=== PATIENT | female | born 1980 | race Caucasian/White ===

== ENCOUNTER → 2016-09-06 | Outpatient (REF) | payer MEDICAID ==
[2016-09-06 13:22] LABS: MEAN CORPUSCULAR HEMOGLOBIN 30.9 pg (27.0-33.0); MEAN CORPUSCULAR HGB CONC 33.6 g/dl (32.0-36.5); MEAN CORPUSCULAR VOLUME 91.9 fl (80.0-96.0); RED CELL DISTRIBUTION WIDTH 12.8 % (11.5-14.5); WHITE BLOOD COUNT 16.1 K/mm3 (4.0-10.0)
[2016-09-06 21:03] LABS: HCG, SERUM QUANTITATIVE 51449 MIU/ML
== END ==
LOC: M LAB REF 12:33
PROVIDERS: ATTEND Advanced Practice Midwife
DX: O36.80X0 Pregnancy with inconclusive fetal viability, not applicable or unspecified (principal); Z3A.00 Weeks of gestation of pregnancy not specified

== ENCOUNTER → 2016-11-27 | Outpatient (REF) | payer OTHER | LOC: M LAB REF 12:39 | PROVIDERS: ATTEND Advanced Practice Midwife | DX: R30.0 Dysuria (principal) ==

== ENCOUNTER → 2017-02-07 | Outpatient (CLI) | payer OTHER ==
[2017-02-07 12:15] LABS: MEAN CORPUSCULAR HEMOGLOBIN 30.9 pg (27.0-33.0); MEAN CORPUSCULAR HGB CONC 32.8 g/dl (32.0-36.5); MEAN CORPUSCULAR VOLUME 94.2 fl (80.0-96.0); PLATELET COUNT, AUTOMATED 415 10^3/uL (150-450); WHITE BLOOD COUNT 15.5 10^3/uL (4.0-10.0)
== END ==
LOC: M LAB 10:39
PROVIDERS: ATTEND Advanced Practice Midwife
DX: Z34.82 Encounter for supervision of other normal pregnancy, second trimester (principal); Z3A.23 23 weeks gestation of pregnancy

== ENCOUNTER → 2017-04-01 | Outpatient (REF) | payer OTHER | LOC: M LAB REF 14:01 | DX: Z34.83 Encounter for supervision of other normal pregnancy, third trimester (principal); Z3A.36 36 weeks gestation of pregnancy ==

== ENCOUNTER 2017-04-27 05:24 | Outpatient (CLI) | payer OTHER ==
[2017-04-27] MEDS: CEPHALEXIN 500 MG CAP PO (06:34)
[2017-04-27] MEDS: PHENAZOPYRIDINE 100 MG TAB PO (07:21)
== END 2017-04-27 08:40 | disposition home or self-care (01) ==
LOC: M LDO 05:24
DX: O99.89 Other specified diseases and conditions complicating pregnancy, childbirth and the puerperium (principal); Z3A.40 40 weeks gestation of pregnancy; O23.43 Unspecified infection of urinary tract in pregnancy, third trimester
CPT/HCPCS: 87086

== ENCOUNTER 2017-05-01 14:47 | Inpatient (IN) | payer OTHER ==
[2017-05-01] MEDS: LR 1,000 ML IV (15:33)
[2017-05-01 15:59] LABS: HEMATOCRIT 35.1 % (36.0-47.0); HEMOGLOBIN 11.4 g/dl (12.0-16.0); MEAN CORPUSCULAR HEMOGLOBIN 28.6 pg (27.0-33.0); MEAN CORPUSCULAR HGB CONC 32.5 g/dl (32.0-36.5); MEAN CORPUSCULAR VOLUME 88.2 fl (80.0-96.0); PLATELET COUNT, AUTOMATED 411 10^3/uL (150-450); RED BLOOD COUNT 3.98 10^6/uL (4.00-5.40); RED CELL DISTRIBUTION WIDTH 13.5 % (11.5-14.5)
[2017-05-01] MEDS ORDERED: FENTANYL 2MCG/ML ROPIVACAINE 0.2% IN 0.9% NACL 200ML IVBAG As Ordered (18:06)
[2017-05-01] MEDS ORDERED: OXYTOCIN DRIP 30 UNITS in APPROPRIATE DILUENT 1 EA IV (18:30)
[2017-05-01] MEDS ORDERED: NALOXONE INJ 0.4 MG/1 ML VIAL (J2310) IV (19:00)
[2017-05-01] MEDS ORDERED: EPIDURAL/PCA KEYS XX (19:00)
[2017-05-01] MEDS ORDERED: ePHEDrine INJ 50 MG/ML VIAL IV (19:00)
[2017-05-01] MEDS ORDERED: REFRIGERATOR IV KEYS XX (19:00)
[2017-05-01] MEDS ORDERED: diphenhydrAMINE INJ 50MG/ML VIAL (J1200) IV (19:00)
[2017-05-01] MEDS ORDERED: LACTATED RINGER'S 1000 ML IV (19:00)
[2017-05-01] MEDS: FENTANYL/ROPIVACAINE/NACL BAG 200 ML EPIDURAL (19:00)
[2017-05-01] MEDS ORDERED: EPIDURAL COMMENT XX (19:00)
[2017-05-01] MEDS: ONDANSETRON 4MG/2ML VIAL (J2405) IV (21:12)
[2017-05-01] MEDS: LACTATED RINGER'S 1000 ML IV (21:13)
[2017-05-01] MEDS ORDERED: BICITRA 30ML SOLN UDC As Ordered (23:07)
[2017-05-02 03:51] LABS: CORD GAS ABE V -11.2; CORD GAS HCO3 V 18.2 MEQ/L; CORD GAS PCO2 V 53.9 mmHg; CORD GAS PH V 7.146 UNITS; CORD GAS PO2 V 22.1 mmHg; CORD GAS SBC V 14.7 MEQ/L; CORD GAS TCO2 V 19.8 MEQ/L
[2017-05-02 03:52] LABS: CORD GAS ABE A -11.3; CORD GAS HCO3 A 19.4 MEQ/L; CORD GAS O2 SAT A 36.5 %; CORD GAS PCO2 A 63.5 mmHg; CORD GAS PH A 7.102 UNITS; CORD GAS SBC A 14.5 MEQ/L; CORD GAS TCO2 A 21.3 MEQ/L
[2017-05-02] MEDS ORDERED: MEASLES,MUMPS,RUBELLA VACCINE INJ (MMR-II) (90707) SC (04:00)
[2017-05-02] MEDS ORDERED: ANUSOL HC CREAM 30GM TOP (04:00)
[2017-05-02] MEDS ORDERED: MOM 30ML SUSPENSION UDC PO (04:00)
[2017-05-02] MEDS ORDERED: RHOGAM 300 MCG (1500 IU) INJ (J2790) IM (04:00)
[2017-05-02] MEDS ORDERED: DIBUCAINE 1% OINTMENT 30GM TOP (04:00)
[2017-05-02] MEDS ORDERED: METHYLERGONOVINE MALEATE 0.2 MG TAB PO (04:00)
[2017-05-02] MEDS: DOCUSATE SODIUM 100 MG CAP PO ×2 (08:33→21:27)
[2017-05-02] MEDS: PRENATAL VITAMINS CHEWABLE TABLET PO (08:33)
[2017-05-02] MEDS: IBUPROFEN 800 MG TAB PO ×2 (08:34→17:46)
[2017-05-02] MEDS: OXYTOCIN DRIP 30 UNITS in APPROPRIATE DILUENT 1 EA IV (21:02)
[2017-05-03] MEDS: IBUPROFEN 800 MG TAB PO (02:30)
[2017-05-03] MEDS: DOCUSATE SODIUM 100 MG CAP PO (07:57)
[2017-05-03] MEDS: PRENATAL VITAMINS CHEWABLE TABLET PO (07:57)
[2017-05-03] MEDS: ACETAMINOPHEN 500 MG TAB PO (07:58)
== END 2017-05-03 16:00 | disposition home or self-care (01) | DRG 560 ==
LOC: M LDI 14:47 → M OBS 05-02 06:26
PROVIDERS: Obstetrics & Gynecology
PROC: 10E0XZZ Delivery of Products of Conception, External Approach (ICD-10-PCS; principal; 2017-05-02)
PROC: 10907ZC Drainage of Amniotic Fluid, Therapeutic from Products of Conception, Via Natural or Artificial Opening (ICD-10-PCS; 2017-05-02)
PROC: 0HQ9XZZ Repair Perineum Skin, External Approach (ICD-10-PCS; 2017-05-02)
DX: O48.0 Post-term pregnancy (principal); O70.0 First degree perineal laceration during delivery; Z37.0 Single live birth; Z3A.41 41 weeks gestation of pregnancy

== ENCOUNTER → 2020-02-14 | Outpatient (CLI) | payer OTHER ==
[~2020-02-14] MED LIST: AZO-95TA3 PO; MOTR200T44 PO; NITR100C39 PO; PRENTAB9 PO; TYLE325T5 PO; TYLE500T78 PO
--- NOTE | 2020-02-14 13:42 | REP ---
INDICATION: PELVIC PAIN COMPARISON: 01/30/2007 TECHNIQUE: Transabdominal pelvic ultrasound with color Doppler evaluation of the ovaries. FINDINGS: Bladder is unremarkable and measures approximately 7.5 x 3.5 x 5.5 cm. Heterogeneous anteverted uterus measures 7.8 x 3.9 x 5.6 cm. The endometrial complex measures 4.7 mm thickness. No discrete uterine or endometrial abnormalities are appreciated. Bilateral ovaries are normal in appearance and vascularity without evidence for torsion. Right ovary measures 1.9 x 1.0 x 1.7 cm; R I = 0.71. Left ovary measures 3.8 x 2.2 x 2.0 cm; R I = 0.60. Small amount of pelvic free fluid is nonspecific and likely physiologic. IMPRESSION: Relatively normal transabdominal pelvic ultrasound. <Electronically signed by Yusef Velázquez > 02/14/20 [id number]
== END ==
LOC: M RAD 12:17
PROVIDERS: ATTEND Student in an Organized Health Care Education/Training Program
DX: R10.2 Pelvic and perineal pain (principal)

== ENCOUNTER → 2023-07-22 | Outpatient (REF) | payer OTHER | LOC: M LAB REF 16:23 | PROVIDERS: ATTEND Physician Assistant | DX: J06.9 Acute upper respiratory infection, unspecified (principal) ==

== ENCOUNTER → 2023-08-08 | Outpatient (CLI) | payer OTHER, SELFPAY | LOC: M WHC 08:45 | PROVIDERS: ATTEND Physician Assistant | DX: Z12.31 Encounter for screening mammogram for malignant neoplasm of breast (principal) ==

== ENCOUNTER → 2023-11-27 | Outpatient (CLI) | payer OTHER | LOC: M RAD 10:38 | PROVIDERS: ATTEND Physician Assistant | DX: M79.671 Pain in right foot (principal) ==

== ENCOUNTER → 2025-03-15 | Outpatient (REF) | payer OTHER ==
[2025-03-15 18:23] LABS: ALT/SGPT 15 U/L (7.0-40); AST/SGOT 17 U/L (<34); CALCIUM LEVEL 8.9 MG/DL (8.5-10.1); CARBON DIOXIDE LEVEL 30 MMOL/L (20-31); CHLORIDE LEVEL 104 MMOL/L (98-107); CREATININE FOR GFR 0.66 MG/DL (0.55-1.30); GLOMERULAR FILTRATION RATE > 90.0 (>58); IRON (FE) 89 UG/DL (50-170); PERCENT SATURATION 31.0 % (13.2-45.0); POTASSIUM SERUM 4.2 MMOL/L (3.5-5.1); SODIUM LEVEL 140 MMOL/L (136-145)
[2025-03-15 18:27] LABS: BASO # 0.1 10^3/uL (0.0-0.2); BASO % 0.9 % (0.0-1.0); EOS # 0.1 10^3/uL (0.0-0.5); EOS % 1.2 % (0.0-3.0); FREE T4 1.09 NG/DL (0.89-1.76); LYMPH # 2.0 10^3/uL (1.5-5.0); LYMPH % 26.3 % (24.0-44.0); MONO # 0.5 10^3/uL (0.0-0.8); MONO % 6.4 % (2.0-8.0); NEUTROPHILS # 4.9 10^3/uL (1.5-8.5); NEUTROPHILS % 65.1 % (36.0-66.0); PLATELET COUNT, AUTOMATED 425 10^3/uL (150-450)
[2025-03-15 18:28] LABS: TOTAL 25(OH) VITAMIN D 25.6 NG/ML (20.0-100.0)
[2025-03-15 19:08] LABS: ESTIMATED AVERAGE GLUCOSE 105.0 MG/DL (60-110)
== END ==
LOC: M LAB REF 16:43
PROVIDERS: ATTEND Physician Assistant
DX: F41.1 Generalized anxiety disorder (principal); D64.9 Anemia, unspecified; M79.10 Myalgia, unspecified site; R61 Generalized hyperhidrosis; E55.9 Vitamin D deficiency, unspecified